=== PATIENT | female | born 1970 | race Caucasian/White ===

== ENCOUNTER 2016-08-25 14:01 | Observation (INO) | payer MEDICAID ==
[~2016-08-25] VITALS: Ht 170.2 cm; Wt 101.2 kg
[~2016-08-25 14:01] MED LIST: ALBU18; CIPR-217 PO; DICL1GEL26; HYDR-2598; NOR10T PO
[2016-08-25 15:10] LABS: Basophils # (auto) 0 uL; Basophils % (auto) 0.3 % (0.0-2.0); Eosinophils # (auto) 0.3 uL; Eosinophils % (auto) 2.2 % (0.0-7.0); Hematocrit 52.5 % (36.0-46.0); Hemoglobin 16.8 g/dL (12.2-16.2); Lymphocytes # (auto) 3.1 uL; Lymphocytes % (auto) 26.1 % (10.0-50.0); Mean Corpuscular Hemoglobin 30.1 pg (28.0-32.0); Mean Corpuscular Volume 94.3 fL (80.0-100.0); Mean Platelet Volume 8.8 fL (7.4-10.4); Monocytes # (auto) 1.1 uL; Monocytes % (auto) 9.6 % (0.0-12.0); Neutrophils # (auto) 7.3 uL; Neutrophils % (auto) 61.8 % (37.0-80.0); Platelet Count (auto) 282 10^3/uL (140-450); Red Cell Distribution Width 15.1 % (11.6-16.0); White Blood Cell 11.8 10^3/uL (4.4-10.8)
[2016-08-25 15:14] LABS: Albumin 3.6 g/dL (3.4-5.0); Aspartate Aminotransferase 137 U/L (15-37); BUN/Creatinine Ratio 16.7; Blood Urea Nitrogen 14 mg/dL (7-18); Calcium 9.2 mg/dL (8.5-10.1); Carbon Dioxide 25 mmol/L (21-32); GFR African American 94 mL/min; GFR Non-African American 78 mL/min; Glucose 98 mg/dL (74-106)
[2016-08-25 15:26] LABS: Anion Gap 9 (5-15); Chloride 110 mmol/L (98-107); Potassium 4.2 mmol/L (3.5-5.1); Sodium 144 mmol/L (136-145)
[2016-08-25 15:31] LABS: Alkaline Phosphatase 165 U/L (45-117); Bilirubin, Total 0.4 mg/dL (0.2-1.0); Total Protein 7.6 g/dL (6.4-8.2)
[2016-08-25 15:34] LABS: Acetaminophen < 2.0 ug/mL (10-30); Salicylate 3.4 mg/dL (2.8-20.0)
[2016-08-25 18:24] LABS: Urine Bilirubin Negative (Negative); Urine Blood Negative /uL (Negative); Urine Color Yellow (Yellow); Urine Glucose Normal (Normal); Urine Ketone Negative (Negative); Urine Mucus FEW (None Seen); Urine Nitrite Negative (Negative); Urine RBC <1 /hpf (0 - 4); Urine Squamous Epithelial Cell MOD /hpf (<5); Urine Urobilinogen Normal (Negative); Urine pH 5.5 (5.0-8.0)
[2016-08-25 18:27] VITALS: BP 143/87
== END 2016-08-25 18:05 | disposition left against medical advice (07) | DRG 756 ==
LOC: ER 14:03 → OVERFLOW 15:48 → ER 18:35
PROVIDERS: ADMIT Family Medicine; ATTEND Family Medicine
DX: R44.3 Hallucinations, unspecified (principal); F32.9 Major depressive disorder, single episode, unspecified; F23 Brief psychotic disorder; F20.9 Schizophrenia, unspecified; F41.9 Anxiety disorder, unspecified; F17.210 Nicotine dependence, cigarettes, uncomplicated; Z82.49 Family history of ischemic heart disease and other diseases of the circulatory system
CPT/HCPCS: 36415; 71010; 80053; 80320; 80329; 81001; 82962; 83735; 85025; 93005; 99285; G0378; G0434

== ENCOUNTER 2018-02-04 12:02 | Emergency (ER) | payer MEDICAID ==
[~2018-02-04] VITALS: Ht 170.2 cm; Wt 99.8 kg
[2018-02-04 13:00] VITALS: BP 112/76
== END 2018-02-04 14:40 | disposition home or self-care (01) ==
LOC: EDBD 12:02 → ER 12:02
DX: R51 Headache (principal); M54.2 Cervicalgia; G89.29 Other chronic pain; F17.210 Nicotine dependence, cigarettes, uncomplicated; Z90.49 Acquired absence of other specified parts of digestive tract; Z90.710 Acquired absence of both cervix and uterus
CPT/HCPCS: 70450; 72125

== ENCOUNTER 2018-08-05 19:03 | Emergency (ER) | payer MEDICAID ==
[~2018-08-05] VITALS: Ht 170.2 cm; Wt 104.3 kg
[2018-08-05 19:23] VITALS: BP 127/92
[2018-08-05] MEDS ORDERED: KETOROLAC TROMETH 60MG/2ML VIAL IM ONE (21:30)
== END 2018-08-05 22:03 | disposition home or self-care (01) ==
LOC: ER 19:03
DX: G89.29 Other chronic pain (principal); M54.5 Low back pain; F17.210 Nicotine dependence, cigarettes, uncomplicated; Z90.710 Acquired absence of both cervix and uterus; Z90.49 Acquired absence of other specified parts of digestive tract; Z88.8 Allergy status to other drugs, medicaments and biological substances
CPT/HCPCS: 96372; 99283; J1885

== ENCOUNTER 2019-11-24 15:51 | Emergency (ER) | payer MEDICAID ==
[~2019-11-24] VITALS: Ht 170.2 cm; Wt 106.6 kg
[~2019-11-24 15:51] MED LIST changes: -CIPR-217 PO; +CIPR500T4 PO
[2019-11-24 17:34] VITALS: BP 120/81
[2019-11-24] MEDS ORDERED: ONDANSETRON ODT 4 MG TAB PO ONE ×2 (17:45)
== END 2019-11-24 18:01 | disposition home or self-care (01) ==
LOC: ER 15:51
DX: F20.9 Schizophrenia, unspecified (principal); R11.0 Nausea; Z76.0 Encounter for issue of repeat prescription
CPT/HCPCS: 99283; Q0162

== ENCOUNTER 2022-12-24 04:15 | Emergency (ER) | payer MEDICAID ==
[~2022-12-24] VITALS: Ht 172.7 cm; Wt 70.0 kg
[2022-12-24 08:32] LABS: Basophils # (auto) 0.1 10 ^3/uL (0-0.2); Basophils % (auto) 0.6 % (0.0-2.0); Eosinophils # (auto) 0.6 10 ^3/uL (0-0.8); Eosinophils % (auto) 4.9 % (0.0-7.0); Hematocrit 46.3 % (36.0-46.0); Hemoglobin 15.3 g/dL (12.2-16.2); Lymphocytes # (auto) 3.4 10 ^3/uL (0.4-5.4); Lymphocytes % (auto) 28.9 % (10.0-50.0); Mean Corpuscular Hemoglobin 32.3 pg (28.0-32.0); Mean Corpuscular Hgb Conc. 33.1 g/dL (32.0-36.0); Mean Corpuscular Volume 97.7 fL (80.0-100.0); Monocytes % (auto) 8.5 % (0.0-12.0); Neutrophils # (auto) 6.8 10 ^3/uL (1.6-8.6); Neutrophils % (auto) 57.1 % (37.0-80.0); Nucleated Red Blood Cells % 0.1 %; Red Blood Cells 4.74 10^6/uL (4.0-5.20); Red Cell Distribution Width 14.7 % (11.8-14.3); White Blood Cell 11.8 10^3/uL (4.4-10.8)
[2022-12-24 08:48] VITALS: BP 128/61; RESP 16; TEMP 97.9; O2SAT 94
[2022-12-24 08:50] LABS: Albumin 3.5 g/dL (3.4-5.0); Calcium 8.3 mg/dL (8.5-10.1); Magnesium 2.5 mg/dL (1.6-2.6); Potassium 4.3 mmol/L (3.5-5.1)
[2022-12-24 08:54] LABS: BUN/Creatinine Ratio 21.6 (10.0-20.0); Bilirubin, Total 0.2 mg/dL (0.2-1.0); Total Protein 6.9 g/dL (6.4-8.2)
[2022-12-24] MEDS ORDERED: METOCLOPRAMIDE HCL 10 MG TAB PO ONE (09:00)
[2022-12-24] MEDS ORDERED: MAALOX PLUS or MAALOX 30 ML PO ONE (09:00)
[2022-12-24] MEDS ORDERED: DONNATAL 5ml ORAL Elix (BELLADONNA ALK-PHENOBARB) PO ONE (09:00)
[2022-12-24 09:48] VITALS: PULSE 93
[2022-12-24 09:50] LABS: Magnesium 2.4 mg/dL (1.6-2.6)
[2022-12-24 09:53] LABS: Urine Bacteria FEW /hpf (None Seen); Urine Blood Negative /uL (Negative); Urine Specific Gravity 1.016 (1.001-1.035); Urine WBC 3 /hpf (0 - 5)
[2022-12-24 10:06] LABS: Alcohol, Urine < 3.0 mg/dL (0-10); Amphetamine Screen, Urine NEGATIVE (NEGATIVE); Barbiturate Scree,Urine NEGATIVE (NEGATIVE); Benzodiazephine Screen, Urine NEGATIVE (NEGATIVE); Cannabinoid Screen, Urine POSITIVE (NEGATIVE); Cocaine Screen, Urine NEGATIVE (NEGATIVE)
[2022-12-24 10:14] LABS: Opiate Scree,Urine POSITIVE (NEGATIVE); Phencyclidine Screen, Urine NEGATIVE (NEGATIVE)
[2022-12-24] MEDS ORDERED: LEVOTHYROXINE SODIUM 112 MCG TAB PO ONE (11:30)
[2022-12-24] MEDS ORDERED: ALUMCHW6 PO (11:35)
== END 2022-12-24 11:49 | disposition home or self-care (01) ==
LOC: EDBD 04:15 → ER 04:15
DX: R10.13 Epigastric pain (principal); G89.4 Chronic pain syndrome; E03.9 Hypothyroidism, unspecified; F12.10 Cannabis abuse, uncomplicated; F25.9 Schizoaffective disorder, unspecified; R74.8 Abnormal levels of other serum enzymes; R07.89 Other chest pain; E11.22 Type 2 diabetes mellitus with diabetic chronic kidney disease; I12.9 Hypertensive chronic kidney disease with stage 1 through stage 4 chronic kidney disease, or unspecified chronic kidney disease; N18.9 Chronic kidney disease, unspecified; F17.210 Nicotine dependence, cigarettes, uncomplicated; Z90.49 Acquired absence of other specified parts of digestive tract; Z90.710 Acquired absence of both cervix and uterus; Z79.2 Long term (current) use of antibiotics; Z79.899 Other long term (current) drug therapy; Z91.048 Other nonmedicinal substance allergy status
CPT/HCPCS: 36415; 71046; 80053; 80307; 81001; 83690; 83735; 84443; 84484; 85025; 93005; 99285; J8597

== ENCOUNTER 2023-01-25 03:32 | Emergency (ER) | payer MEDICAID ==
[~2023-01-25] VITALS: Ht 165.1 cm; Wt 92.7 kg
[~2023-01-25 03:32] MED LIST changes: +ALUMCHW6 PO
[2023-01-25 05:51] VITALS: BP 140/82; PULSE 72; RESP 16; TEMP 97.4; O2SAT 96
[2023-01-26] MEDS ORDERED: QUET300T14 PO (13:50)
== END 2023-01-25 05:54 | disposition home or self-care (01) ==
LOC: ER 03:32 → EDBD 03:32 → ER 05:48
DX: G44.229 Chronic tension-type headache, not intractable (principal); F17.210 Nicotine dependence, cigarettes, uncomplicated; E11.9 Type 2 diabetes mellitus without complications; Z90.49 Acquired absence of other specified parts of digestive tract; Z90.710 Acquired absence of both cervix and uterus; Z87.440 Personal history of urinary (tract) infections

== ENCOUNTER 2023-01-25 05:51 | Inpatient (IN) | payer MEDICAID ==
[~2023-01-25] VITALS: Ht 167.6 cm; Wt 92.0 kg
[2023-01-25 06:37] LABS: INR 1.01 (0.9-1.15); Partial Thromboplastin Time 29.1 SEC (24.5-34.5); Prothrombin Time 10.6 sec (9.3-11.8)
[2023-01-25] MEDS ORDERED: ONDANSETRON ODT 4 MG TAB PO ONE (07:00)
[2023-01-25] MEDS ORDERED: HYDROcodone-ACET 5/325MG TAB PO ONE (07:00)
[2023-01-25 07:14] LABS: Basophils # (auto) 0.1 10 ^3/uL (0-0.2); Basophils % (auto) 0.6 % (0.0-2.0); Eosinophils # (auto) 0.2 10 ^3/uL (0-0.8); Eosinophils % (auto) 1.2 % (0.0-7.0); Hematocrit 47.3 % (36.0-46.0); Hemoglobin 15.6 g/dL (12.2-16.2); Lymphocytes # (auto) 2.9 10 ^3/uL (0.4-5.4); Lymphocytes % (auto) 17.6 % (10.0-50.0); Mean Corpuscular Hemoglobin 31.9 pg (28.0-32.0); Mean Corpuscular Volume 96.8 fL (80.0-100.0); Monocytes # (auto) 1.7 10 ^3/uL (0-1.3); Monocytes % (auto) 10.4 % (0.0-12.0); Neutrophils # (auto) 11.6 10 ^3/uL (1.6-8.6); Neutrophils % (auto) 70.2 % (37.0-80.0); Red Blood Cells 4.89 10^6/uL (4.0-5.20); Red Cell Distribution Width 15.1 % (11.8-14.3); White Blood Cell 16.6 10^3/uL (4.4-10.8)
[2023-01-25 07:26] LABS: Alanine Aminotransferase 167 U/L (7-40); Alkaline Phosphatase 171 U/L (46-116); Anion Gap 13.2 (5-15); Aspartate Aminotransferase 138 U/L (13-40); BUN/Creatinine Ratio 17.6 (10.0-20.0); Blood Urea Nitrogen 16 mg/dL (9-23); Calcium 9.6 mg/dL (8.5-10.1); Carbon Dioxide 21.8 mmol/L (20-30); Chloride 108 mmol/L (98-107); Glucose 114 mg/dL (74-106); Magnesium 2.2 mg/dL (1.6-2.6); Sodium 143 mmol/L (136-145)
[2023-01-25 07:27] LABS: Bilirubin, Total 0.6 mg/dL (0.2-1.0); Total Protein 7.7 g/dL (5.7-8.2)
[2023-01-25 07:47] LABS: Urine Bacteria FEW /hpf (None Seen); Urine Blood Negative /uL (Negative); Urine Clarity Clear (Clear); Urine Color Yellow (Yellow); Urine Protein, UAD TRACE (Negative); Urine Specific Gravity 1.028 (1.001-1.035); Urine WBC <1 /hpf (0 - 5)
[2023-01-25] MEDS ORDERED: PIPERACILLIN-TAZO 4.5GM 100 ML IV ONE (11:30)
[2023-01-25 12:23] LABS: Free T3 2.71 pg/mL (2.3-4.2)
[2023-01-25 12:24] LABS: Free T4 (Free Thyroxine) 1.29 ng/dL (0.89-1.76)
[2023-01-25] MEDS ORDERED: ONDANSETRON HCL 4 MG/2 ML VIAL IV PRN (13:30)
[2023-01-25] MEDS ORDERED: MORPHINE SULFATE 4 MG/ML SYR/VIAL IV PRN (13:30)
[2023-01-25] MEDS ORDERED: NITROGLYCERIN 0.4 MG SL TAB SL PRN (13:30)
[2023-01-25 15:13] LABS: Prothrombin Time 10.5 sec (9.3-11.8)
[2023-01-25] MEDS: PIPERACILLIN-TAZOB 3.375GM 100 ML IV SCH (18:49)
[2023-01-25] MEDS ORDERED: ATORVASTATIN 20 MG TAB PO SCH (22:00)
[2023-01-26] MEDS: METOPROLOL TARTRATE 25 MG TAB PO SCH ×2 (00:06→10:34)
[2023-01-26] MEDS: PIPERACILLIN-TAZOB 3.375GM 100 ML IV SCH ×2 (02:16→09:32)
[2023-01-26] MEDS ORDERED: cloNIDine HCL 0.1 MG TAB PO PRN (03:45)
[2023-01-26 06:53] LABS: Basophils # (auto) 0.1 10 ^3/uL (0-0.2); Basophils % (auto) 0.8 % (0.0-2.0); Eosinophils # (auto) 0.4 10 ^3/uL (0-0.8); Eosinophils % (auto) 4.2 % (0.0-7.0); Hematocrit 44.1 % (36.0-46.0); Hemoglobin 14.5 g/dL (12.2-16.2); Lymphocytes # (auto) 2.4 10 ^3/uL (0.4-5.4); Lymphocytes % (auto) 23.7 % (10.0-50.0); Mean Corpuscular Hemoglobin 32.2 pg (28.0-32.0); Mean Corpuscular Hgb Conc. 32.8 g/dL (32.0-36.0); Mean Corpuscular Volume 98.1 fL (80.0-100.0); Monocytes # (auto) 1.3 10 ^3/uL (0-1.3); Monocytes % (auto) 13.3 % (0.0-12.0); Neutrophils # (auto) 5.8 10 ^3/uL (1.6-8.6); Nucleated Red Blood Cells % 0.1 %; Red Blood Cells 4.49 10^6/uL (4.0-5.20); Red Cell Distribution Width 15.1 % (11.8-14.3); White Blood Cell 9.9 10^3/uL (4.4-10.8)
[2023-01-26 07:01] LABS: Alanine Aminotransferase 178 U/L (7-40); Albumin 4.2 g/dL (3.2-4.8); Alkaline Phosphatase 185 U/L (46-116); Anion Gap 3.9 (5-15); Aspartate Aminotransferase 103 U/L (13-40); Blood Urea Nitrogen 11 mg/dL (9-23); Calcium 9.1 mg/dL (8.7-10.4); Carbon Dioxide 27.1 mmol/L (20-30); Chloride 108 mmol/L (98-107); Glucose 116 mg/dL (74-106); Potassium 4.1 mmol/L (3.5-5.1); Sodium 139 mmol/L (136-145)
[2023-01-26 07:02] LABS: Bilirubin, Total 0.6 mg/dL (0.2-1.0); Total Protein 6.5 g/dL (5.7-8.2)
[2023-01-26] MEDS ORDERED: HYDROcodone-ACET 5/325MG TAB PO ONE (07:15)
[2023-01-26] MEDS ORDERED: DOCUSATE SOD 100 MG CAP PO SCH (10:00)
[2023-01-26] MEDS ORDERED: ASPirin 81 mg TAB PO SCH (10:00)
[2023-01-26 10:35] VITALS: TEMP 98.4
[2023-01-26 11:40] VITALS: BP 156/89; PULSE 75; RESP 20; O2SAT 96
[2023-01-26] MEDS ORDERED: QUET300T14 PO (13:50)
[2023-01-26] MEDS ORDERED: PIPERACILLIN-TAZOB 3.375GM 100 ML IV SCH (22:00)
== END 2023-01-26 12:44 | disposition left against medical advice (07) | DRG 203 ==
LOC: ER 05:51 → TELE 13:34
PROVIDERS: ADMIT Nurse Practitioner Family; ATTEND Family Medicine
DX: R07.89 Other chest pain (principal); F22 Delusional disorders; R16.0 Hepatomegaly, not elsewhere classified; D72.829 Elevated white blood cell count, unspecified; E11.65 Type 2 diabetes mellitus with hyperglycemia; E03.9 Hypothyroidism, unspecified; E78.5 Hyperlipidemia, unspecified; F17.210 Nicotine dependence, cigarettes, uncomplicated; F20.9 Schizophrenia, unspecified; F41.9 Anxiety disorder, unspecified; F32.A Depression, unspecified; Z53.29 Procedure and treatment not carried out because of patient's decision for other reasons; I10 Essential (primary) hypertension; Z82.49 Family history of ischemic heart disease and other diseases of the circulatory system; Z83.3 Family history of diabetes mellitus; Z90.710 Acquired absence of both cervix and uterus; Z88.8 Allergy status to other drugs, medicaments and biological substances; Z90.49 Acquired absence of other specified parts of digestive tract
CPT/HCPCS: 36415; 70450; 71045; 74177; 76705; 80053; 81001; 82962; 83690; 83735; 83880; 84439; 84443; 84481; 84484; 85025; 85610; 85730; 87040; 93005; 93306; 96365; 96375; G0378; J2405; J2543; Q0162

== ENCOUNTER 2023-01-26 13:08 | Emergency (ER) | payer MEDICAID ==
[~2023-01-26] VITALS: Ht 170.2 cm; Wt 91.7 kg
[2023-01-26 13:45] VITALS: BP 162/80; PULSE 77; RESP 16; TEMP 98.3; O2SAT 94
[2023-01-26] MEDS ORDERED: QUET300T14 PO (13:50)
== END 2023-01-26 13:55 | disposition home or self-care (01) ==
LOC: ER 13:08
DX: F20.9 Schizophrenia, unspecified (principal); I10 Essential (primary) hypertension; E78.5 Hyperlipidemia, unspecified; E11.9 Type 2 diabetes mellitus without complications; E03.9 Hypothyroidism, unspecified; F17.210 Nicotine dependence, cigarettes, uncomplicated; Z76.0 Encounter for issue of repeat prescription; Z90.49 Acquired absence of other specified parts of digestive tract; Z90.710 Acquired absence of both cervix and uterus; Z79.2 Long term (current) use of antibiotics; Z79.899 Other long term (current) drug therapy; Z91.048 Other nonmedicinal substance allergy status
CPT/HCPCS: 93005

== ENCOUNTER 2023-02-07 15:31 | Emergency (ER) | payer MEDICAID ==
[~2023-02-07] VITALS: Ht 167.6 cm; Wt 94.8 kg
[~2023-02-07 15:31] MED LIST changes: +QUET300T14 PO
[2023-02-07] MEDS ORDERED: KETOROLAC TROMETH 30 MG/ML 1ML VIAL IM ONE (17:15)
[2023-02-07 17:40] LABS: Basophils # (auto) 0.1 10 ^3/uL (0-0.2); Basophils % (auto) 0.7 % (0.0-2.0); Eosinophils # (auto) 0.3 10 ^3/uL (0-0.8); Eosinophils % (auto) 2.3 % (0.0-7.0); Hematocrit 48.7 % (36.0-46.0); Hemoglobin 16.7 g/dL (12.2-16.2); Lymphocytes # (auto) 2.9 10 ^3/uL (0.4-5.4); Lymphocytes % (auto) 26.7 % (10.0-50.0); Mean Corpuscular Hemoglobin 32.9 pg (28.0-32.0); Mean Corpuscular Hgb Conc. 34.2 g/dL (32.0-36.0); Mean Corpuscular Volume 96.3 fL (80.0-100.0); Monocytes % (auto) 9.4 % (0.0-12.0); Neutrophils # (auto) 6.7 10 ^3/uL (1.6-8.6); Neutrophils % (auto) 60.9 % (37.0-80.0); Red Blood Cells 5.06 10^6/uL (4.0-5.20); White Blood Cell 11.1 10^3/uL (4.4-10.8)
[2023-02-07 17:53] LABS: Urine Bacteria NONE SEEN /hpf (None Seen); Urine Blood Negative /uL (Negative); Urine Clarity Clear (Clear); Urine Color Yellow (Yellow); Urine Protein, UAD Negative (Negative); Urine Specific Gravity 1.015 (1.001-1.035); Urine Urobilinogen Normal (Negative); Urine WBC <1 /hpf (0 - 5)
[2023-02-07 18:01] LABS: Alanine Aminotransferase 63 U/L (7-40); Albumin 4.6 g/dL (3.2-4.8); Alkaline Phosphatase 150 U/L (46-116); Anion Gap 5.4 (5-15); Aspartate Aminotransferase 37 U/L (13-40); BUN/Creatinine Ratio 12.4 (10.0-20.0); Bilirubin, Total 0.3 mg/dL (0.2-1.0); Blood Urea Nitrogen 12 mg/dL (9-23); Calcium 9.7 mg/dL (8.7-10.4); Carbon Dioxide 27.6 mmol/L (20-30); Chloride 107 mmol/L (98-107); Glucose 139 mg/dL (74-106); Potassium 4.6 mmol/L (3.5-5.1); Sodium 140 mmol/L (136-145); Total Protein 7.4 g/dL (5.7-8.2)
[2023-02-07 18:08] LABS: Amphetamine Screen, Urine Neg (NEGATIVE)
[2023-02-07 18:09] LABS: Barbiturate Scree,Urine Neg (NEGATIVE); Benzodiazephine Screen, Urine Neg (NEGATIVE); Cannabinoid Screen, Urine Neg (NEGATIVE); Cocaine Screen, Urine Neg (NEGATIVE); Opiate Scree,Urine Pos (NEGATIVE); Phencyclidine Screen, Urine Neg (NEGATIVE)
[2023-02-07 19:58] VITALS: BP 131/74; PULSE 82; RESP 18; TEMP 97.6; O2SAT 95
== END 2023-02-07 20:02 | disposition home or self-care (01) ==
LOC: ER 15:31
DX: F41.9 Anxiety disorder, unspecified (principal); G89.4 Chronic pain syndrome; M54.6 Pain in thoracic spine; F32.9 Major depressive disorder, single episode, unspecified; E11.9 Type 2 diabetes mellitus without complications; E78.5 Hyperlipidemia, unspecified; I10 Essential (primary) hypertension; F17.210 Nicotine dependence, cigarettes, uncomplicated; Z90.49 Acquired absence of other specified parts of digestive tract; Z90.710 Acquired absence of both cervix and uterus; Z87.440 Personal history of urinary (tract) infections
CPT/HCPCS: 36415; 70450; 74176; 80053; 80307; 81001; 83605; 85025; 96372; 99285; J1885

== ENCOUNTER 2023-02-16 17:36 | Emergency (ER) | payer MEDICAID ==
[~2023-02-16] VITALS: Ht 167.6 cm; Wt 95.4 kg
[2023-02-16 18:54] VITALS: BP 155/80; PULSE 18; RESP 18; TEMP 98; O2SAT 99
[2023-02-16] MEDS ORDERED: KETOROLAC TROMETH 60MG/2ML VIAL IM ONE (19:15)
[2023-02-16] MEDS ORDERED: IBUP-1455 PO (23:59)
[2023-02-16] MEDS ORDERED: TRAM50TA2 PO (23:59)
== END 2023-02-16 20:18 | disposition home or self-care (01) ==
LOC: EDBD 17:36 → EDUNIT# 17:36 → ER 17:36
DX: G89.29 Other chronic pain (principal); M54.50 Low back pain, unspecified; F41.9 Anxiety disorder, unspecified; I50.9 Heart failure, unspecified; J44.9 Chronic obstructive pulmonary disease, unspecified; F32.9 Major depressive disorder, single episode, unspecified; F20.9 Schizophrenia, unspecified; F15.90 Other stimulant use, unspecified, uncomplicated; Z90.710 Acquired absence of both cervix and uterus; Z88.8 Allergy status to other drugs, medicaments and biological substances; Z79.1 Long term (current) use of non-steroidal anti-inflammatories (NSAID); Z79.899 Other long term (current) drug therapy
CPT/HCPCS: 96372; 99283; J1885

== ENCOUNTER 2023-02-16 19:52 | Emergency (ER) | payer MEDICAID ==
[~2023-02-16] VITALS: Ht 167.6 cm; Wt 93.0 kg
[2023-02-16 20:30] VITALS: TEMP 99.1; O2SAT 96
[2023-02-16] MEDS ORDERED: HYDROcodone-ACET 5/325MG TAB PO ONE (22:00)
[2023-02-16] MEDS ORDERED: KETOROLAC TROMETH 60MG/2ML VIAL IM ONE (22:00)
[2023-02-16] MEDS ORDERED: TRAM50TA2 PO (23:59)
[2023-02-16] MEDS ORDERED: IBUP-1455 PO (23:59)
[2023-02-17 00:30] VITALS: BP 172/78; PULSE 73; RESP 18
[2023-02-17] MEDS ORDERED: HYDROmorphone HCL 2 MG/ML VL/or syr IM ONE (00:30)
== END 2023-02-17 00:46 | disposition home or self-care (01) ==
LOC: ER 19:52
DX: G89.29 Other chronic pain (principal); M54.59 Other low back pain; F41.9 Anxiety disorder, unspecified; F32.9 Major depressive disorder, single episode, unspecified; E11.9 Type 2 diabetes mellitus without complications; E78.5 Hyperlipidemia, unspecified; I10 Essential (primary) hypertension; F20.9 Schizophrenia, unspecified; F17.210 Nicotine dependence, cigarettes, uncomplicated; Z79.899 Other long term (current) drug therapy; Z90.49 Acquired absence of other specified parts of digestive tract; Z90.710 Acquired absence of both cervix and uterus; Z88.8 Allergy status to other drugs, medicaments and biological substances
CPT/HCPCS: 96372; 99284; J1170; J1885

== ENCOUNTER 2023-02-17 07:07 | Emergency (ER) | payer MEDICAID ==
[~2023-02-17] VITALS: Ht 170.2 cm; Wt 100.0 kg
[2023-02-17 11:48] LABS: Alanine Aminotransferase 145 U/L (7-40); Albumin 4.6 g/dL (3.2-4.8); Alkaline Phosphatase 140 U/L (46-116); Aspartate Aminotransferase 107 U/L (13-40); BUN/Creatinine Ratio 21.5 (10.0-20.0); Blood Urea Nitrogen 23 mg/dL (9-23); Carbon Dioxide 30 mmol/L (20-30); Glucose 139 mg/dL (74-106)
[2023-02-17 11:49] LABS: Bilirubin, Total 0.6 mg/dL (0.2-1.0)
[2023-02-17 12:12] LABS: Basophils # (auto) 0.1 10 ^3/uL (0-0.2); Basophils % (auto) 0.7 % (0.0-2.0); Eosinophils # (auto) 0.1 10 ^3/uL (0-0.8); Eosinophils % (auto) 0.6 % (0.0-7.0); Hematocrit 44.7 % (36.0-46.0); Lymphocytes # (auto) 1.9 10 ^3/uL (0.4-5.4); Mean Corpuscular Hemoglobin 31.9 pg (28.0-32.0); Mean Corpuscular Hgb Conc. 33.6 g/dL (32.0-36.0); Mean Corpuscular Volume 94.8 fL (80.0-100.0); Monocytes # (auto) 1.3 10 ^3/uL (0-1.3); Monocytes % (auto) 9.2 % (0.0-12.0); Neutrophils # (auto) 11.2 10 ^3/uL (1.6-8.6); Neutrophils % (auto) 76.5 % (37.0-80.0); Nucleated Red Blood Cells % 0.1 %; Red Blood Cells 4.71 10^6/uL (4.0-5.20); White Blood Cell 14.6 10^3/uL (4.4-10.8)
[2023-02-17 12:23] LABS: Anion Gap 10 (5-15); Chloride 102 mmol/L (98-107); Potassium 3.8 mmol/L (3.5-5.1); Sodium 142 mmol/L (136-145)
[2023-02-17 12:30] LABS: Lipase 105 U/L (12-53)
[2023-02-17 14:17] LABS: Amphetamine Screen, Urine Neg (NEGATIVE)
[2023-02-17 14:18] LABS: Barbiturate Scree,Urine Neg (NEGATIVE); Benzodiazephine Screen, Urine Neg (NEGATIVE); Cannabinoid Screen, Urine Pos (NEGATIVE); Cocaine Screen, Urine Neg (NEGATIVE); Opiate Scree,Urine Pos (NEGATIVE); Phencyclidine Screen, Urine Neg (NEGATIVE)
[2023-02-17] MEDS ORDERED: ONDANSETRON ODT 4 MG TAB PO ONE (15:45)
[2023-02-17] MEDS ORDERED: HYDROcodone-ACET 5/325MG TAB PO ONE (15:45)
[2023-02-17 21:03] LABS: Urine Bacteria NONE SEEN /hpf (None Seen); Urine Blood Negative /uL (Negative); Urine Clarity Clear (Clear); Urine Color Yellow (Yellow); Urine Protein, UAD TRACE (Negative); Urine Specific Gravity 1.025 (1.001-1.035); Urine WBC 2 /hpf (0 - 5); Urine pH 7.5 (5.0-8.0)
[2023-02-17 22:58] VITALS: BP 140/71; PULSE 86; RESP 18; TEMP 98; O2SAT 93
== END 2023-02-17 22:38 | disposition home or self-care (01) ==
LOC: ER 07:07
DX: D72.829 Elevated white blood cell count, unspecified (principal); R10.2 Pelvic and perineal pain; R10.9 Unspecified abdominal pain; R74.01 Elevation of levels of liver transaminase levels; R07.9 Chest pain, unspecified; M54.50 Low back pain, unspecified; E11.9 Type 2 diabetes mellitus without complications; E78.5 Hyperlipidemia, unspecified; I10 Essential (primary) hypertension; F17.210 Nicotine dependence, cigarettes, uncomplicated; Z90.49 Acquired absence of other specified parts of digestive tract; Z90.710 Acquired absence of both cervix and uterus; Z88.8 Allergy status to other drugs, medicaments and biological substances
CPT/HCPCS: 36415; 71046; 74176; 80053; 80307; 81001; 83690; 84484; 84702; 85025; 99284; Q0162

== ENCOUNTER → 2023-02-17 | Emergency (ER) | payer MEDICAID ==
[~2023-02-17] MED LIST changes: +IBUP-1455 PO; +TRAM50TA2 PO
== END | disposition left against medical advice (07) ==
LOC: ER 03:05
DX: G89.29 Other chronic pain (principal); Z53.21 Procedure and treatment not carried out due to patient leaving prior to being seen by health care provider

== ENCOUNTER 2023-03-15 18:35 | Emergency (ER) | payer MEDICAID ==
[~2023-03-15] VITALS: Ht 170.2 cm; Wt 99.0 kg
[2023-03-15 18:58] VITALS: BP 137/65; PULSE 102; RESP 20; O2SAT 95
[2023-03-15 19:30] LABS: Basophils # (auto) 0.1 10 ^3/uL (0-0.2); Basophils % (auto) 0.5 % (0.0-2.0); Eosinophils # (auto) 0.4 10 ^3/uL (0-0.8); Eosinophils % (auto) 2.4 % (0.0-7.0); Hematocrit 42.1 % (36.0-46.0); Hemoglobin 13.7 g/dL (12.2-16.2); Lymphocytes # (auto) 3.7 10 ^3/uL (0.4-5.4); Mean Corpuscular Hemoglobin 31.6 pg (28.0-32.0); Mean Corpuscular Hgb Conc. 32.5 g/dL (32.0-36.0); Monocytes % (auto) 12.4 % (0.0-12.0); Neutrophils % (auto) 61.7 % (37.0-80.0); Nucleated Red Blood Cells % 0.1 %; Red Blood Cells 4.34 10^6/uL (4.0-5.20); Red Cell Distribution Width 14.1 % (11.8-14.3); White Blood Cell 16.2 10^3/uL (4.4-10.8)
[2023-03-15 19:53] LABS: Alanine Aminotransferase 70 U/L (7-40); Albumin 4.2 g/dL (3.2-4.8); Alkaline Phosphatase 141 U/L (46-116); Anion Gap 7 (5-15); Aspartate Aminotransferase 21 U/L (13-40); BUN/Creatinine Ratio 13.3 (10.0-20.0); Bilirubin, Total 0.2 mg/dL (0.2-1.0); Blood Urea Nitrogen 12 mg/dL (9-23); Calcium 9.3 mg/dL (8.5-10.1); Carbon Dioxide 27 mmol/L (20-30); Chloride 108 mmol/L (98-107); Glucose 114 mg/dL (74-106); Potassium 4.8 mmol/L (3.5-5.1); Sodium 142 mmol/L (136-145); Total Protein 6.4 g/dL (5.7-8.2)
[2023-03-15 20:08] LABS: Lipase 62 U/L (12-53)
[2023-03-15 21:08] LABS: Urine Bacteria NONE SEEN /hpf (None Seen); Urine Blood Negative /uL (Negative); Urine Clarity Clear (Clear); Urine Color Colorless (Yellow); Urine Protein, UAD Negative (Negative); Urine Specific Gravity 1.008 (1.001-1.035); Urine Urobilinogen Normal (Negative); Urine WBC <1 /hpf (0 - 5)
== END 2023-03-15 23:27 | disposition left against medical advice (07) ==
LOC: EDBD 18:35 → ER 18:35
DX: D72.829 Elevated white blood cell count, unspecified (principal); R74.8 Abnormal levels of other serum enzymes; M25.571 Pain in right ankle and joints of right foot; M79.10 Myalgia, unspecified site; I10 Essential (primary) hypertension; E11.9 Type 2 diabetes mellitus without complications; E78.5 Hyperlipidemia, unspecified; F41.9 Anxiety disorder, unspecified; F32.9 Major depressive disorder, single episode, unspecified; F20.9 Schizophrenia, unspecified; F17.210 Nicotine dependence, cigarettes, uncomplicated; Z98.890 Other specified postprocedural states; Z88.8 Allergy status to other drugs, medicaments and biological substances; Z91.09 Other allergy status, other than to drugs and biological substances; Z79.899 Other long term (current) drug therapy
CPT/HCPCS: 36415; 80053; 81001; 83690; 85025

== ENCOUNTER 2023-06-11 11:06 | Emergency (ER) | payer MEDICAID ==
[~2023-06-11] VITALS: Ht 170.2 cm; Wt 113.6 kg
[~2023-06-11 11:06] MED LIST changes: +IBU600T PO
[2023-06-11] MEDS ORDERED: LORazepam 0.5 MG TAB PO ONE (12:00)
[2023-06-11] MEDS ORDERED: QUEtiapine FUMARATE 100 MG TAB PO ONE (12:00)
[2023-06-11 12:17] VITALS: TEMP 98.6
[2023-06-11 12:20] LABS: Basophils # (auto) 0.1 10 ^3/uL (0-0.2); Basophils % (auto) 0.5 % (0.0-2.0); Eosinophils # (auto) 0.2 10 ^3/uL (0-0.8); Nucleated Red Blood Cells % 0.1 %
[2023-06-11 12:21] LABS: Eosinophils % (auto) 1.2 % (0.0-7.0); Hematocrit 53.7 % (36.0-46.0); Hemoglobin 17.6 g/dL (12.2-16.2); Lymphocytes # (auto) 5.5 10 ^3/uL (0.4-5.4); Lymphocytes % (auto) 39.4 % (10.0-50.0); Mean Corpuscular Hgb Conc. 32.8 g/dL (32.0-36.0); Mean Corpuscular Volume 91.7 fL (80.0-100.0); Monocytes # (auto) 1.2 10 ^3/uL (0-1.3); Monocytes % (auto) 8.9 % (0.0-12.0); Red Blood Cells 5.85 10^6/uL (4.0-5.20); Red Cell Distribution Width 15.6 % (11.8-14.3)
[2023-06-11 12:40] LABS: Acetaminophen < 2.0 UG/ML (10.0-20.0); Alanine Aminotransferase 68 U/L (7-40); Albumin 4.6 g/dL (3.2-4.8); Alkaline Phosphatase 179 U/L (46-116); Anion Gap 9 (5-15); Aspartate Aminotransferase 36 U/L (13-40); BUN/Creatinine Ratio 10.2 (10.0-20.0); Bilirubin, Total 0.3 mg/dL (0.2-1.0); Blood Alcohol < 3.0 mg/dL (<10); Blood Urea Nitrogen 10 mg/dL (9-23); Calcium 10.1 mg/dL (8.5-10.1); Carbon Dioxide 23 mmol/L (20-30); Chloride 104 mmol/L (98-107); Glucose 143 mg/dL (74-106); Potassium 4.4 mmol/L (3.5-5.1); Salicylate < 3.0 mg/dL (2.8-20.0); Sodium 136 mmol/L (136-145); Total Protein 7.6 g/dL (5.7-8.2)
[2023-06-11 12:51] LABS: Magnesium 1.9 mg/dL (1.6-2.6)
[2023-06-11 13:56] VITALS: BP 139/82; PULSE 93; RESP 18; O2SAT 96
== END 2023-06-11 16:00 | disposition home or self-care (01) ==
LOC: EDBD 11:06 → ER 11:06
DX: F28 Other psychotic disorder not due to a substance or known physiological condition (principal); F20.9 Schizophrenia, unspecified; G89.4 Chronic pain syndrome; M54.50 Low back pain, unspecified; F41.9 Anxiety disorder, unspecified; I10 Essential (primary) hypertension; E11.9 Type 2 diabetes mellitus without complications; E78.5 Hyperlipidemia, unspecified; E03.9 Hypothyroidism, unspecified; Z79.1 Long term (current) use of non-steroidal anti-inflammatories (NSAID); Z79.2 Long term (current) use of antibiotics; Z79.899 Other long term (current) drug therapy; Z88.8 Allergy status to other drugs, medicaments and biological substances; Z91.048 Other nonmedicinal substance allergy status
CPT/HCPCS: 36415; 80053; 80320; 80329; 83735; 85025

== ENCOUNTER 2023-07-06 11:52 | Emergency (ER) | payer MEDICAID ==
[~2023-07-06] VITALS: Ht 167.6 cm; Wt 77.2 kg
[2023-07-06 14:18] LABS: Salicylate < 3.0 mg/dL (2.8-20.0)
[2023-07-06] MEDS: LORazepam 0.5 MG TAB PO ONE (14:46)
[2023-07-06] MEDS: HYDROcodone-ACET 5/325MG TAB PO ONE (14:54)
[2023-07-06 15:38] VITALS: BP 134/87; PULSE 87; RESP 17; TEMP 98.7; O2SAT 97
== END 2023-07-06 19:30 | disposition left against medical advice (07) ==
LOC: EDBD 11:52 → ER 11:52
DX: R51.9 Headache, unspecified (principal); R44.3 Hallucinations, unspecified; I10 Essential (primary) hypertension; E11.9 Type 2 diabetes mellitus without complications; E78.5 Hyperlipidemia, unspecified; E03.9 Hypothyroidism, unspecified; F17.210 Nicotine dependence, cigarettes, uncomplicated; Z90.49 Acquired absence of other specified parts of digestive tract; Z90.710 Acquired absence of both cervix and uterus; Z79.1 Long term (current) use of non-steroidal anti-inflammatories (NSAID); Z79.2 Long term (current) use of antibiotics; Z79.899 Other long term (current) drug therapy; Z88.8 Allergy status to other drugs, medicaments and biological substances; Z91.048 Other nonmedicinal substance allergy status
CPT/HCPCS: 36415; 70450; 80320; 80329

== ENCOUNTER 2023-11-12 00:48 | Emergency (ER) | payer MEDICAID ==
[~2023-11-12] VITALS: Ht 170.2 cm; Wt 100.0 kg
[2023-11-12 00:56] VITALS: BP 170/64; RESP 16; O2SAT 95
[2023-11-12 01:17] LABS: Basophils # (auto) 0.1 10 ^3/uL (0-0.2); Basophils % (auto) 0.4 % (0.0-2.0); Eosinophils # (auto) 0.2 10 ^3/uL (0-0.8); Eosinophils % (auto) 1.6 % (0.0-7.0); Hematocrit 51.5 % (36.0-46.0); Hemoglobin 16.9 g/dL (12.2-16.2); Lymphocytes # (auto) 3.5 10 ^3/uL (0.4-5.4); Lymphocytes % (auto) 21.7 % (10.0-50.0); Mean Corpuscular Hemoglobin 30.4 pg (28.0-32.0); Mean Corpuscular Hgb Conc. 32.9 g/dL (32.0-36.0); Mean Corpuscular Volume 92.5 fL (80.0-100.0); Monocytes # (auto) 1.6 10 ^3/uL (0-1.3); Monocytes % (auto) 10.3 % (0.0-12.0); Neutrophils # (auto) 10.5 10 ^3/uL (1.6-8.6); Red Blood Cells 5.56 10^6/uL (4.0-5.20); Red Cell Distribution Width 13.1 % (11.8-14.3); White Blood Cell 15.9 10^3/uL (4.4-10.8)
[2023-11-12 01:32] LABS: INR 1.03 (0.9-1.15); Partial Thromboplastin Time 27.2 SEC (24.5-34.5); Prothrombin Time 10.9 sec (9.3-11.8)
[2023-11-12 01:36] LABS: Alanine Aminotransferase 24 U/L (7-40); Albumin 4.8 g/dL (3.2-4.8); Alkaline Phosphatase 163 U/L (46-116); Anion Gap 5 (5-15); Aspartate Aminotransferase 17 U/L (13-40); BUN/Creatinine Ratio 9.5 (10.0-20.0); Blood Urea Nitrogen 10 mg/dL (9-23); Calcium 10.3 mg/dL (8.5-10.1); Carbon Dioxide 28 mmol/L (20-30); Chloride 107 mmol/L (98-107); Glucose 131 mg/dL (74-106); Magnesium 1.9 mg/dL (1.6-2.6); Potassium 4.3 mmol/L (3.5-5.1); Sodium 140 mmol/L (136-145)
[2023-11-12 01:37] LABS: Bilirubin, Total 0.4 mg/dL (0.2-1.0); Total Protein 7.6 g/dL (5.7-8.2)
[2023-11-12 02:47] VITALS: PULSE 83
== END 2023-11-12 03:43 | disposition home or self-care (01) ==
LOC: ER 00:48 → EDBD 00:48 → ER 03:30
DX: R07.89 Other chest pain (principal); I10 Essential (primary) hypertension; E78.5 Hyperlipidemia, unspecified; E11.9 Type 2 diabetes mellitus without complications; F17.210 Nicotine dependence, cigarettes, uncomplicated; Z90.710 Acquired absence of both cervix and uterus; Z90.49 Acquired absence of other specified parts of digestive tract; Z88.8 Allergy status to other drugs, medicaments and biological substances
CPT/HCPCS: 36415; 71045; 80053; 83735; 83880; 84484; 85025; 85610; 85730; 93005

== ENCOUNTER 2024-10-08 15:33 | Emergency (ER) | payer MEDICAID ==
[~2024-10-08] VITALS: Ht 160 cm; Wt 96.8 kg
--- NOTE | 2024-10-08 16:22 | DVH ---
EXAM: CT HEAD WITHOUT CONTRAST INDICATION: BUCK TECHNIQUE: CT of the head without intravenous contrast. Radiation Dose Information: CT Dose: CTDI volume is 60.21 mGy. Dose-length product is 1186.47 mGy*cm The dose indicators for CT are the volume Computed Tomography (CT) Dose Index (CTDIvol) and the Dose Length Product (DLP), and are measured in units of mGy and mGy-cm, respectively. These indicators are not patient dose, but values generated from the CT scanner acquisition factors. The report includes radiation exposure data for exposures received during this examination. COMPARISON: CT HEAD WITHOUT CONTRAST on DOS: 07/06/23, CT HEAD WITHOUT CONTRAST on DOS: 02/07/23, CT HEA D WITHOUT CONTRAST on DOS: 01/25/23 FINDINGS: There is no evidence of acute intracranial hemorrhage, extra-axial collection, mass effect, midline s hift, herniation or hydrocephalus. The ventricles, sulci and cisterns are age appropriate. The osborne-white differentiation is intact. Patchy periventricular and subcortical white matter hypoattenuation is nonspecific but may be related to small vessel ischemic disease. The visualized paranasal sinuses and mastoid air cells are clear. The surrounding soft tissues and osseous structures are unremarkable. IMPRESSION: 1. No acute intracranial hemorrhage 2. No CT findings of territorial ischemia. 3. No CT findings of paranasal sinus or mastoid disease
[2024-10-08 16:32] LABS: Basophils # (auto) 0.1 10 ^3/uL (0-0.2); Basophils % (auto) 0.8 % (0.0-2.0); Eosinophils # (auto) 0.4 10 ^3/uL (0-0.8); Eosinophils % (auto) 3.6 % (0.0-7.0); Hematocrit 48.7 % (36.0-46.0); Hemoglobin 16.3 g/dL (12.2-16.2); Lymphocytes % (auto) 37.6 % (10.0-50.0); Mean Corpuscular Hemoglobin 31.6 pg (28.0-32.0); Mean Corpuscular Hgb Conc. 33.5 g/dL (32.0-36.0); Mean Corpuscular Volume 94.6 fL (80.0-100.0); Monocytes # (auto) 0.9 10 ^3/uL (0-1.3); Monocytes % (auto) 8.4 % (0.0-12.0); Neutrophils # (auto) 5.3 10 ^3/uL (1.6-8.6); Neutrophils % (auto) 49.6 % (37.0-80.0); Nucleated Red Blood Cells % 0.1 %; Platelet Count (auto) 302 10^3/uL (140-450); Red Blood Cells 5.15 10^6/uL (4.0-5.20); Red Cell Distribution Width 13.4 % (11.8-14.3); White Blood Cell 10.7 10^3/uL (4.4-10.8)
--- NOTE | 2024-10-08 16:37 | ED.PDOC ---
History of Present Illness HPI Comments 54-year-old female presents with a chief complaint of "I have had a headache since I was a kid". Denies chest pain, sob, nausea, vomiting or diarrhea. No slurred speech noted. Patient denies any other symptoms other than the headache. Chief Complaint: Headache Time Seen by MD: 16:36 Primary Care Provider: none Reviewed Notes: Medications, Allergies Allergies: Coded Allergies: Soap (Verified Allergy, Severe, 03/14/13) Lanolin (Verified Allergy, Intermediate, 11/01/12) Home Meds Active Scripts Ibuprofen Micronized (MOTRIN TABLET) 600 Mg Tb, 600 MG PO TID PRN for 5 Days, #15 TAB *Black box warning-NSAIDS can increase risk of [place] & hypertension, GI irritation, ulceration, bleed, perferation. Do not use post cardiac surgery. Use short duration/lowest effective dose. Prov:EVITA TORRES MD 06/01/23 Tramadol Hcl (Tramadol Hcl) 50 Mg Tab, 50 MG PO Q8HP PRN, #15 TAB Prov:CHANTEL ADAM PAC 02/16/23 Ibuprofen Micronized (Ibuprofen) 800 Mg Tab, 800 MG PO Q8HP PRN, #30 TAB Prov:CHANTEL ADAM PAC 02/16/23 Quetiapine Fumerate (Seroquel) 300 Mg Tab, 1 TAB PO QPM, #20 TAB Prov:BIJAL MARTIN 01/26/23 Aluminum Hydroxide-Mag Carb (Gaviscon Extra Strength) 1 Chw Chw, 1 CHW PO TID for 15 Days, #60 TAB.CHEW Prov:NATALY YEPEZ MD 12/24/22 Ciprofloxacin Hcl (Ciprofloxacin Hcl) 500 Mg Tab, 500 MG PO Q12HR, #10 MG Prov:PRANAY BERNAL MD 03/14/13 Reported Medications Hydrocodone-Acetaminophen ([place] 10/325MG) 1 Tab Tb, 1 TAB PO TID 03/14/13 [Voltaren1 %] (Voltaren) 1 % GEL No Conflict Check, % 11/01/12 [Ventolin Hfa] (Ventolin Hfa) AER No Conflict Check 11/01/12 [Hydrocodone/Ace1 Ta9] (Hydrocodone/Acetaminophen) 1 TAB TAB No Conflict Check, TAB 11/01/12 Information Source: Patient Mode of Arrival: Ambulatory Severity: Moderate Timing: Months Duration: Since onset Prehospital treatment: None Past Medical History PAST MEDICAL HISTORY: Anxiety, Depression, DM, High Lipids, HTN, Liver, Schizophrenia, Thyroid, UTI'S Surgical History: Appendectomy, Cholecystectomy, Hysterectomy 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 PROJECTION WELDING 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 OPERATOR History Family History Family History: Family hx of DM, Family hx of heart jorge, Family hx of HTN Social History Smoker: Cigarettes Alcohol: Denies ETOH Use Drugs: Denies Drug Use Lives In: Home Constitutional: denies: chills, diaphoresis, fatigue, fever, malaise, sweats, weakness, others EENTM: denies: blurred vision, double vision, ear bleeding, ear discharge, ear drainage, ear pain, ear ringing, eye pain, eye redness, hearing loss, mouth pain, mouth swelling, nasal discharge, nose bleeding, nose congestion, nose pain, photophobia, tearing, throat pain, throat swelling, voice changes, others Respiratory: denies: cough, hemoptysis, orthopnea, SOB at rest, shortness of breath, SOB with excertion, stridor, wheezing, others Cardiovascular: denies: chest pain, dizzy spells, diaphoresis, Dyspnea on exertion, edema, irregular heart beat, left arm pain, lightheadedness, palpitations, PND, syncope, others Gastrointestinal: denies: abdomen distended, abdominal pain, blood streaked bowels, constipated, diarrhea, dysphagia, difficulty swallowing, hematemesis, melena, nausea, poor appetite, poor fluid intake, rectal bleeding, rectal pain, vomiting, others Genitourinary: denies: abnormal vagina bleeding, burning, dyspareunia, dysuria, flank pain, frequency, hematuria, incontinence, pain, , vagina discharge, urgency, others Neurological: reports: headache; denies: dizziness, fainting, left sided numbness, left sided weakness, numbness, paresthesia, pre-existing deficit, right sided numbness, right sided weakness, seizure, speech problems, tingling, tremors, weakness, others Musculoskeletal: denies: back pain, gout, joint pain, joint swelling, muscle pain, muscle stiffness, neck pain, others Integumetry: denies: bruises, change in color, change in hair/nails, dryness, laceration, lesions, lumps, rash, wounds, others Allergic/Immunocompromised: denies: Difficulty Healing, Frequent Infections, Hives, Itching, others Hematologic/Lymphatic: denies: anemia, blood clots, easy bleeding, easy bruising, swollen glands, others Endocrine: denies: excessive hunger, excessive sweating, excessive thirst, excessive urination, flushing, intolerance to cold, intolerance to heat, unexplained weight gain, unexplained weight loss, others Psychiatric: denies: anxiety, bipolar disorder, depression, hopeless, panic disorder, schizophrenia, sleepless, suicidal, others All Other Systems: Reviewed and Negative Physical Exam General Appearance: No Apparent Distress, Normal HEENT: Normal ENT Inspection, Pharynx Normal, TMs Normal Neck: Full Range of Motion, Non-Tender, Normal, Normal Inspection Respiratory: Chest Non-Tender, Lungs Clear, No Accessory Muscle Use, No Respiratory Distress, Normal Breath Sounds Cardiovascular: No Edema, No JVD, No Murmur, No Gallop, Normal Peripheral Pulses, Regular Rate/Rhythm Breast Exam: Deferred Gastrointestinal: No Organomegaly, Non Tender, No Pulsatile Mass, Normal Bowel Sounds, Soft Genitalia: Deferred Pelvic: Deferred Rectal: Deferred Extremities: No calf tenderness, Normal capillary refill, Normal inspection, Normal range of motion, Non-tender, No pedal edema Musculoskeletal : Apperance: Normal Neurologic: Alert, return clerk II-XII nml as Tested, No Motor Deficits, Normal Affect, Normal Mood, No Sensory Deficits Cerebellar Function: Normal Reflexes: Normal Skin: Dry, Normal Color, Warm Lymphatic: No Adenopathy Was a procedure done? Was a procedure done?: No Differential Dx Considerations may include: TIA, CVA, migraine headache, X-Ray, Labs, Meds, VS Vital Signs Date Time Temp Pulse Resp B/P (MAP) Pulse Ox O2 Delivery O2 Flow Rate FiO2 10/08/24 15:58 98.3 78 20 123/73 (90) 99 98.3 Lab Test 10/08/24 16:19 Range/Units White Blood Count 10.7 4.4-10.8 10^3/uL Red Blood Count 5.15 4.0-5.20 10^6/uL Hemoglobin 16.3 H 12.2-16.2 g/dL Hematocrit 48.7 H 36.0-46.0 % Mean Corpuscular Volume 94.6 80.0-100.0 fL Mean Corpuscular Hemoglobin 31.6 28.0-32.0 pg Mean Corpuscular Hemoglobin Concent 33.5 32.0-36.0 g/dL Red Cell Distribution Width 13.4 11.8-14.3 % Platelet Count 302 140-450 10^3/uL Mean Platelet Volume 8.8 6.9-10.8 fL Neutrophils (%) (Auto) 49.6 37.0-80.0 % Lymphocytes (%) (Auto) 37.6 10.0-50.0 % Monocytes (%) (Auto) 8.4 0.0-12.0 % Eosinophils (%) (Auto) 3.6 0.0-7.0 % Basophils (%) (Auto) 0.8 0.0-2.0 % Neutrophils # (Auto) 5.3 1.6-8.6 10 ^3/uL Lymphocytes # (Auto) 4.0 0.4-5.4 10 ^3/uL Monocytes # (Auto) 0.9 0-1.3 10 ^3/uL Eosinophils # (Auto) 0.4 0-0.8 10 ^3/uL Basophils # (Auto) 0.1 0-0.2 10 ^3/uL Nucleated Red Blood Cells 0.1 % D-Dimer, Quantitative 0.24 0.0-0.49 mg/L FEU Sodium Level 141 136-145 mmol/L Potassium Level 4.1 3.5-5.1 mmol/L Chloride Level 105 98-107 mmol/L Carbon Dioxide Level 28 20-31 mmol/L Anion Gap 8 5-15 Blood Urea Nitrogen 15 9-23 mg/dL Creatinine 1.11 H 0.550-1.02 mg/dL Glomerular Filtration Rate Calc 59 >90 mL/min BUN/Creatinine Ratio 13.5 10.0-20.0 Serum Glucose 180 H 74-106 mg/dL Calcium Level 9.3 8.7-10.4 mg/dL Total Bilirubin 0.3 0.2-1.0 mg/dL Aspartate Amino Transferase (AST) 37 13-40 U/L Alanine Aminotransferase (ALT) 55 H 7-40 U/L Alkaline Phosphatase 124 H 46-116 U/L Total Protein 6.7 5.7-8.2 g/dL Albumin 4.4 3.2-4.8 g/dL X-Ray, Labs, Meds, VS Comment Imaging: X-rays and CT scans were reviewed and interpreted by this provider, imaging shows no fractures and no pathological disease. Pending radiology review. Laboratory: Labs reviewed and interpreted by this provider. No significant abnormalities noted. Patient has prior medical visits reviewed. Med reconciliation performed Vital signs reviewed Time of 1ST Reevaluation: 17:06 Reevaluation 1ST: Unchanged Patient Education/Counseling: Diagnosis, Treatment, Need For Follow Up (Follow up with PCP in the next 2-4 days. Return to the emergency department if symptoms worsen.) Family Education/Counseling: Diagnosis, Treatment Departure 1 Departure Time of Disposition: 20:50 Impression: Primary Impression: Cephalgia Qualified Codes: G44.209 - Tension-type headache, unspecified, not intractable Additional Impression: Chronic headache Qualified Codes: G44.229 - Chronic tension-type headache, not intractable Disposition: 01 HOME / SELF CARE / HOMELESS Condition: Fair Discharged With: Self Critical Care Note Critical Care Time?: No Stability Stability form required: No Heart Score Heart Score: Heart Score Response (Comments) Value History N/A 0 EKG N/A 0 Age N/A 0 Risk Factors N/A 0 Troponin N/A 0 Total 0 I personally scribed for MATTHEW SAHA ([email or web address]) on 10/08/24 at 16:37. Electronically submitted by Nick Jalloh ([email or web address]). MATTHEW SAHA October 08, 2024 16:37
[2024-10-08 16:46] LABS: Albumin 4.4 g/dL (3.2-4.8); Anion Gap 8 (5-15); Aspartate Aminotransferase 37 U/L (13-40); BUN/Creatinine Ratio 13.5 (10.0-20.0); Blood Urea Nitrogen 15 mg/dL (9-23); Calcium 9.3 mg/dL (8.7-10.4); Carbon Dioxide 28 mmol/L (20-31); Chloride 105 mmol/L (98-107); Potassium 4.1 mmol/L (3.5-5.1); Sodium 141 mmol/L (136-145); Total Protein 6.7 g/dL (5.7-8.2)
[2024-10-08 16:47] LABS: Alanine Aminotransferase 55 U/L (7-40); Alkaline Phosphatase 124 U/L (46-116); Bilirubin, Total 0.3 mg/dL (0.2-1.0); Glucose 180 mg/dL (74-106)
[2024-10-09 00:36] VITALS: BP 152/71; PULSE 83; TEMP 97.9
[2024-10-09] MEDS: KETOROLAC TROMETH 30 MG/ML 1ML VIAL IM ONE (00:39)
[2024-10-09 00:47] VITALS: RESP 20; O2SAT 97
== END 2024-10-09 00:51 | disposition home or self-care (01) ==
LOC: ER 15:33
DX: R51.9 Headache, unspecified (principal); F17.210 Nicotine dependence, cigarettes, uncomplicated; F32.A Depression, unspecified; I10 Essential (primary) hypertension; F20.9 Schizophrenia, unspecified; E11.9 Type 2 diabetes mellitus without complications; E78.5 Hyperlipidemia, unspecified; F41.9 Anxiety disorder, unspecified; Z90.710 Acquired absence of both cervix and uterus; Z90.49 Acquired absence of other specified parts of digestive tract; Z79.899 Other long term (current) drug therapy; Z87.440 Personal history of urinary (tract) infections; Z91.048 Other nonmedicinal substance allergy status
CPT/HCPCS: 36415; 70450; 80053; 85025; 85379; 96372; 99285; J1885

== ENCOUNTER 2025-01-21 11:26 | Emergency (ER) | payer MEDICAID, OTHER ==
[~2025-01-21] VITALS: Ht 167.6 cm; Wt 94.0 kg
[2025-01-21 11:31] VITALS: TEMP 97.9
--- NOTE | 2025-01-21 11:43 | ECG ---
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
--- NOTE | 2025-01-21 12:03 | ED.PDOC ---
History of Present Illness HPI Comments This is a 54-year-old female who comes in with chief complaint of palpitations. The patient states that she has had palpitations for many years. She states that she did not feel good last night as well as this morning so she came to the emergency department's for evaluation. She also states that she is having some right-sided chest pain. She states that the pain is a 5/10. Chief Complaint: Palpitations Time Seen by MD: 11:34 Reviewed Notes: Nurses Notes, Medications, Allergies (No allergies to medications) Allergies: Coded Allergies: NO KNOWN ALLERGIES (Unverified , 01/21/25) Information Source: Patient Mode of Arrival: Ambulatory Severity: Moderate Timing: Days Duration: Since onset Prehospital treatment: None Location: Right-sided chest pain and palpitations Past Medical History PAST MEDICAL HISTORY: DM, High Lipids, HTN Surgical History: Appendectomy, Cholecystectomy, Hysterectomy Surgical History (Other): splenectomy, REFERRAL SPECIALIST History: No Pertinent REFERRAL SPECIALIST History Family History Family History: Family hx of Cancer Social History Smoker: Cigarettes Alcohol: Denies ETOH Use Drugs: Denies Drug Use Lives In: Home Constitutional: denies: chills, diaphoresis, fatigue, fever, malaise, sweats, weakness, others EENTM: denies: blurred vision, double vision, ear bleeding, ear discharge, ear drainage, ear pain, ear ringing, eye pain, eye redness, hearing loss, mouth pain, mouth swelling, nasal discharge, nose bleeding, nose congestion, nose pain, photophobia, tearing, throat pain, throat swelling, voice changes, others Respiratory: denies: cough, hemoptysis, orthopnea, SOB at rest, shortness of breath, SOB with excertion, stridor, wheezing, others Cardiovascular: reports: chest pain, palpitations; denies: dizzy spells, diaphoresis, Dyspnea on exertion, edema, irregular heart beat, left arm pain, lightheadedness, PND, syncope, others Gastrointestinal: denies: abdomen distended, abdominal pain, blood streaked bowels, constipated, diarrhea, dysphagia, difficulty swallowing, hematemesis, melena, nausea, poor appetite, poor fluid intake, rectal bleeding, rectal pain, vomiting, others Genitourinary: denies: abnormal vagina bleeding, burning, dyspareunia, dysuria, flank pain, frequency, hematuria, incontinence, pain, , vagina discharge, urgency, others Neurological: denies: dizziness, fainting, headache, left sided numbness, left sided weakness, numbness, paresthesia, pre-existing deficit, right sided nu mbness, right sided weakness, seizure, speech problems, tingling, tremors, weakness, others Musculoskeletal: denies: back pain, gout, joint pain, joint swelling, muscle pain, muscle stiffness, neck pain, others Integumetry: denies: bruises, change in color, change in hair/nails, dryness, laceration, lesions, lumps, rash, wounds, others Allergic/Immunocompromised: denies: Difficulty Healing, Frequent Infections, Hives, Itching, others Hematologic/Lymphatic: denies: anemia, blood clots, easy bleeding, easy bruising, swollen glands, others Endocrine: denies: excessive hunger, excessive sweating, excessive thirst, excessive urination, flushing, intolerance to cold, intolerance to heat, unexplained weight gain, unexplained weight loss, others Psychiatric: denies: anxiety, bipolar disorder, depression, hopeless, panic disorder, schizophrenia, sleepless, suicidal, others Physical Exam General Appearance: Moderate Distress HEENT: Normal ENT Inspection, Pharynx Normal, TMs Normal Neck: Full Range of Motion, Non-Tender, Normal, Normal Inspection Respiratory: Chest Non-Tender, Lungs Clear, No Accessory Muscle Use, No Respiratory Distress, Normal Breath Sounds Cardiovascular: No Edema, No JVD, No Murmur, No Gallop, Normal Peripheral Pulses, Regular Rate/Rhythm Breast Exam: Deferred Gastrointestinal: No Organomegaly, Non Tender, No Pulsatile Mass, Normal Bowel Sounds, Soft Genitalia: Deferred Pelvic: Deferred Rectal: Deferred Extremities: No calf tenderness, Normal capillary refill, Normal inspection, Normal range of motion, Non-tender, No pedal edema Musculoskeletal : Apperance: Normal Neurologic: Alert, back hand II-XII nml as Tested, No Motor Deficits, Normal Affect, Normal Mood, No Sensory Deficits Cerebellar Function: Normal Reflexes: Normal Skin: Dry, Normal Color, Warm Lymphatic: No Adenopathy Was a procedure done? Was a procedure done?: No EKG EKG : Pulse Rate (adult): 68 [place]: Normal Cardiac Rhythm: NSR Block: None ST: Nonsp Differential Dx Considerations may include: ACS, [place], atrial fibrillation with rapid response, electrolyte imbalance X-Ray, Labs, Meds, VS Vital Signs Date Time Temp Pulse Resp B/P (MAP) Pulse Ox O2 Delivery O2 Flow Rate FiO2 01/21/25 12:16 64 01/21/25 12:05 68 01/21/25 11:37 68 01/21/25 11:31 97.9 72 16 148/83 96 97.9 Lab Test 01/21/25 12:04 Range/Units White Blood Count 13.1 H 4.4-10.8 10^3/uL Red Blood Count 5.14 4.0-5.20 10^6/uL Hemoglobin 16.5 H 12.2-16.2 g/dL Hematocrit 49.1 H 36.0-46.0 % Mean Corpuscular Volume 95.6 80.0-100.0 fL Mean Corpuscular Hemoglobin 32.1 H 28.0-32.0 pg Mean Corpuscular Hemoglobin Concent 33.5 32.0-36.0 g/dL Red Cell Distribution Width 14.5 H 11.8-14.3 % Platelet Count 263 140-450 10^3/uL Mean Platelet Volume 9.2 6.9-10.8 fL Neutrophils (%) (Auto) 50.5 37.0-80.0 % Lymphocytes (%) (Auto) 36.1 10.0-50.0 % Monocytes (%) (Auto) 9.7 0.0-12.0 % Eosinophils (%) (Auto) 2.0 0.0-7.0 % Basophils (%) (Auto) 1.7 0.0-2.0 % Neutrophils # (Auto) 6.6 1.6-8.6 10 ^3/uL Lymphocytes # (Auto) 4.7 0.4-5.4 10 ^3/uL Monocytes # (Auto) 1.3 0-1.3 10 ^3/uL Eosinophils # (Auto) 0.3 0-0.8 10 ^3/uL Basophils # (Auto) 0.2 0-0.2 10 ^3/uL Nucleated Red Blood Cells 0.1 % Sodium Level 143 136-145 mmol/L Potassium Level 4.5 3.5-5.1 mmol/L Chloride Level 107 98-107 mmol/L Carbon Dioxide Level 30 20-31 mmol/L Anion Gap 6 5-15 Blood Urea Nitrogen 18 9-23 mg/dL Creatinine 1.14 H 0.550-1.02 mg/dL Glomerular Filtration Rate Calc 58 >90 mL/min BUN/Creatinine Ratio 15.8 10.0-20.0 Serum Glucose 122 H 74-106 mg/dL Calcium Level 9.9 8.7-10.4 mg/dL Troponin I High Sensitivity 3 L </=34 ng/L IV Hep-Lock was established The patient's CBC shows an elevated white blood cell count of 13.1 The rest of the CBC is within normal limits The chemistry panel shows a creatinine of 1.14 At this time the troponin level is negative The chest x-ray shows: No sign of any abnormalities The patient is being admitted at this time. The patient understands and agrees with the management. The repeat EKG shows some signs of ischemia so we are going to get a Cardiology consult Images Reviewed?: Images reviewed and evaluated by me Time of 1ST Reevaluation: 12:04 Reevaluation 1ST: Unchanged Patient Education/Counseling: Diagnosis, Treatment, Prognosis Family Education/Counseling: No Family Present SEPSIS Sepsis Screen Date sepsis recognized/suspect: Jan 21, 2025 Time Sepsis recognized/suspect: 113 Recent Procedure: No On Antibiotic Therapy: No Respiratory Rate >20: No Heart Rate >90: No Temp<36 C (96.8 F) or >38.3 C: No SBP <90 or MAP <65 mmHG: No New Acute Mental Status Change: No Is the patient on CPAP, BIPAP,: No Physician Orders Urinalysis (01/21/25 11:50) Chest Two Views Routine (01/21/25 11:50) Drug Screen (01/21/25 11:50) Troponin-I Hs (01/21/25 12:50) Troponin-I Hs (01/21/25 14:50) Vital Signs Date Time Temp Pulse Resp B/P (MAP) Pulse Ox O2 Delivery O2 Flow Rate FiO2 01/21/25 12:16 64 01/21/25 12:05 68 01/21/25 11:37 68 01/21/25 11:31 97.9 72 16 148/83 96 97.9 Laboratory Tests Test 01/21/25 12:04 White Blood Count 13.1 10^3/uL (4.4-10.8) H Departure 1 Departure Time of Disposition: 12:44 Impression: Primary Impression: Acute coronary syndrome Disposition: 09 ADMITTED INPATIENT Admit to: Tele Condition: Fair Critical Care Note Critical Care Time?: Yes (35 min-critical care time only) Stability Stability form required: Yes Unstable for transfer: Telemetry monitoring (Telemetry monitoring required), ED Physician Assesment (Clinical assesment) Heart Score Heart Score: Heart Score Response (Comments) Value History N/A 0 EKG N/A 0 Age N/A 0 Risk Factors N/A 0 Troponin N/A 0 Total 0 PRANAY BERNAL MD Jan 21, 2025 12:03
[2025-01-21 12:22] LABS: Hematocrit 49.1 % (36.0-46.0); Hemoglobin 16.5 g/dL (12.2-16.2); Mean Corpuscular Hemoglobin 32.1 pg (28.0-32.0); Mean Corpuscular Volume 95.6 fL (80.0-100.0); Nucleated Red Blood Cells % 0.1 %
--- NOTE | 2025-01-21 12:23 | DVH ---
XY CHEST TWO VIEWS ROUTINE INDICATION: cp TECHNIQUE: Two views of the chest COMPARISON: None FINDINGS/IMPRESSION: LUNGS: No pleural effusion, consolidation, or pneumothorax MEDIASTINUM: Unremarkable BONES: No acute osseous abnormality OTHER: None
[2025-01-21 12:30] LABS: Potassium 4.5 mmol/L (3.5-5.1); Sodium 143 mmol/L (136-145)
[2025-01-21 12:31] LABS: Anion Gap 6 (5-15); Calcium 9.9 mg/dL (8.7-10.4); Carbon Dioxide 30 mmol/L (20-31)
[2025-01-21 12:32] LABS: Chloride 107 mmol/L (98-107)
[2025-01-21 12:36] LABS: BUN/Creatinine Ratio 15.8 (10.0-20.0); Blood Urea Nitrogen 18 mg/dL (9-23)
[2025-01-21 12:37] LABS: Glucose 122 mg/dL (74-106)
[2025-01-21 13:38] LABS: Urine Protein, UAD Negative (Negative)
[2025-01-21 13:41] LABS: Cannabinoid Screen, Urine Pos (NEGATIVE)
[2025-01-21 13:45] LABS: Amphetamine Screen, Urine Neg (NEGATIVE); Barbiturate Scree,Urine Neg (NEGATIVE); Benzodiazephine Screen, Urine Neg (NEGATIVE); Cocaine Screen, Urine Neg (NEGATIVE); Opiate Scree,Urine Pos (NEGATIVE); Phencyclidine Screen, Urine Neg (NEGATIVE)
[2025-01-21 14:27] VITALS: BP 163/82; PULSE 70; RESP 18; O2SAT 96
== END 2025-01-21 15:07 | disposition left against medical advice (07) ==
LOC: ER 11:26 → MERGE 11:26 → ER 15:07
DX: I24.9 Acute ischemic heart disease, unspecified (principal); R00.2 Palpitations; E11.9 Type 2 diabetes mellitus without complications; Z90.710 Acquired absence of both cervix and uterus; Z90.49 Acquired absence of other specified parts of digestive tract; Z79.899 Other long term (current) drug therapy
CPT/HCPCS: 36415; 71046; 80048; 80307; 81001; 84484; 85025; 93005; 99291

== ENCOUNTER 2025-02-07 09:01 | Emergency (ER) | payer MEDICAID ==
[~2025-02-07] VITALS: Ht 162.6 cm; Wt 100.0 kg
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
[2025-02-07 09:39] LABS: Hematocrit 55.2 % (36.0-46.0); Hemoglobin 18.4 g/dL (12.2-16.2); Mean Corpuscular Hemoglobin 31.4 pg (28.0-32.0); Mean Corpuscular Volume 94.0 fL (80.0-100.0); Nucleated Red Blood Cells % 0.1 %
[2025-02-07 09:52] LABS: Chloride 100 mmol/L (98-107); Potassium 4.6 mmol/L (3.5-5.1); Sodium 141 mmol/L (136-145)
[2025-02-07 09:53] LABS: Anion Gap 7 (5-15)
[2025-02-07 09:54] LABS: Calcium 11.3 mg/dL (8.7-10.4); Carbon Dioxide 34 mmol/L (20-31)
[2025-02-07 09:58] LABS: BUN/Creatinine Ratio 10.5 (10.0-20.0); Blood Urea Nitrogen 11 mg/dL (9-23)
[2025-02-07 10:08] LABS: Glucose 114 mg/dL (74-106)
[2025-02-07 10:56] LABS: Urine Protein, UAD Negative (Negative)
[2025-02-07] MEDS: PANTOPRAZOLE 40 MG/10 ML VIAL INJ IV ONE (11:34)
[2025-02-07 11:44] VITALS: PULSE 84; RESP 17; O2SAT 98
[2025-02-07] MEDS ORDERED: PANT40TA2 PO (12:59)
[2025-02-07] MEDS: SODIUM CHLORIDE 0.9% 1,000 ML IV ONE (13:38)
[2025-02-07 13:45] VITALS: TEMP 98.3
[2025-02-07 16:00] VITALS: BP 152/82; PULSE 88; RESP 20; O2SAT 92
== END 2025-02-07 16:16 | disposition home or self-care (01) ==
LOC: EDBD 09:01 → ER 09:01
DX: K29.70 Gastritis, unspecified, without bleeding (principal); F17.210 Nicotine dependence, cigarettes, uncomplicated; F32.A Depression, unspecified; F20.9 Schizophrenia, unspecified; E11.9 Type 2 diabetes mellitus without complications; I10 Essential (primary) hypertension; E78.5 Hyperlipidemia, unspecified; Z79.899 Other long term (current) drug therapy; Z90.710 Acquired absence of both cervix and uterus; Z87.440 Personal history of urinary (tract) infections; Z79.891 Long term (current) use of opiate analgesic; Z90.49 Acquired absence of other specified parts of digestive tract
CPT/HCPCS: 36415; 80048; 81001; 84484; 85025; 96361; 96374; 99283; J2470; J7030

== ENCOUNTER 2025-03-20 15:14 | Emergency (ER) | payer MEDICAID ==
[~2025-03-20] VITALS: Ht 167.6 cm; Wt 83.4 kg
[~2025-03-20 15:14] MED LIST changes: +PANT40TA2 PO
--- NOTE | 2025-03-20 15:54 | ED.PDOC ---
History of Present Illness(SKN HPI Comments This is a 54 year old female presenting to the ED with chief complaint of animal bite. Patient reports that she had been bitten to both of her feet by a rat in her garage where according to the patient she is currently living. Patient relays that her home also has scabies in it, believing she is exposed as her scalp is itchy. Patient denies any fever, chills, redness, swelling, discharge, SOB, or chest pain. Vital signs were stable. Chief Complaint: Animal Bite Time Seen by MD: 15:51 Primary Care Provider: none History of Present Illness: Nurses Notes, Medications, Allergies Allergies: Coded Allergies: Soap (Verified Allergy, Severe, 03/14/13) Lanolin (Verified Allergy, Intermediate, 11/01/12) Home Meds Active Scripts Pantoprazole Sodium Sesquihydr (Protonix) 40 Mg Tab, 40 MG PO DAILY for 10 Days, #10 TAB Prov:EVITA TORRES MD 02/07/25 Ibuprofen Micronized (MOTRIN TABLET) 600 Mg Tb, 600 MG PO TID PRN for 5 Days, #15 TAB *Black box warning-NSAIDS can increase risk of CT & hypertension, GI irritation, ulceration, bleed, perferation. Do not use post cardiac surgery. Use short duration/lowest effective dose. Prov:EVITA TORRES MD 06/01/23 Tramadol Hcl (Tramadol Hcl) 50 Mg Tab, 50 MG PO Q8HP PRN, #15 TAB Prov:CHANTEL ADAM PAC 02/16/23 Ibuprofen Micronized (Ibuprofen) 800 Mg Tab, 800 MG PO Q8HP PRN, #30 TAB Prov:CHANTEL ADAM PAC 02/16/23 Quetiapine Fumerate (Seroquel) 300 Mg Tab, 1 TAB PO QPM, #20 TAB Prov:BIJAL MARTIN 01/26/23 Aluminum Hydroxide-Mag Carb (Gaviscon Extra Strength) 1 Chw Chw, 1 CHW PO TID for 15 Days, #60 TAB.CHEW Prov:NATALY YEPEZ MD 12/24/22 Ciprofloxacin Hcl (Ciprofloxacin Hcl) 500 Mg Tab, 500 MG PO Q12HR, #10 MG Prov:PRANAY BERNAL MD 03/14/13 Reported Medications Hydrocodone-Acetaminophen ([place] 10/325MG) 1 Tab Tb, 1 TAB PO TID 03/14/13 [Voltaren1 %] (Voltaren) 1 % GEL No Conflict Check, % 11/01/12 [Ventolin Hfa] (Ventolin Hfa) AER No Conflict Check 11/01/12 [Hydrocodone/Ace1 Ta9] (Hydrocodone/Acetaminophen) 1 TAB TAB No Conflict Check, TAB 11/01/12 Information Source: Patient Mode of Arrival: Ambulatory Severity: Mild Timing: Hours Duration: Since onset Prehospital treatment: None Location: Foot, Head Mechanism: Scabies (and rat) Occurence: Indoors Object: None Condition of Object: None Retained Foreign Body: No Wound Type: Puncture Immunization Status of Animal: Unknown Tetanus: >5 Years, Unknown Associated Signs and Symptoms: Redness Past Medical History PAST MEDICAL HISTORY: Anxiety, Depression, DM, High Lipids, HTN, Liver, Schizophrenia, Thyroid, UTI'S Surgical History: Appendectomy, Cholecystectomy, Hysterectomy 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 History Family History Family History: Reviewed,noncontributory to illness, Family hx of DM, Family hx of heart jorge, Family hx of HTN Social History Smoker: Cigarettes Alcohol: Denies ETOH Use Drugs: Denies Drug Use Lives In: Home Constitutional: denies: chills, diaphoresis, fatigue, fever, malaise, sweats, weakness, others EENTM: denies: blurred vision, double vision, ear bleeding, ear discharge, ear drainage, ear pain, ear ringing, eye pain, eye redness, hearing loss, mouth pain, mouth swelling, nasal discharge, nose bleeding, nose congestion, nose pain, photophobia, tearing, throat pain, throat swelling, voice changes, others Respiratory: denies: cough, hemoptysis, orthopnea, SOB at rest, shortness of breath, SOB with excertion, stridor, wheezing, others Cardiovascular: denies: chest pain, dizzy spells, diaphoresis, Dyspnea on exertion, edema, irregular heart beat, left arm pain, lightheadedness, palpitations, PND, syncope, others Gastrointestinal: denies: abdomen distended, abdominal pain, blood streaked bowels, constipated, diarrhea, dysphagia, difficulty swallowing, hematemesis, melena, nausea, poor appetite, poor fluid intake, rectal bleeding, rectal pain, vomiting, others Genitourinary: denies: abnormal vagina bleeding, burning, dyspareunia, dysuria, flank pain, frequency, hematuria, incontinence, pain, , vagina discharge, urgency, others Neurological: denies: dizziness, fainting, headache, left sided numbness, left sided weakness, numbness, paresthesia, pre-existing deficit, right sided numbness, right sided weakness, seizure, speech problems, tingling, tremors, weakness, others Musculoskeletal: denies: back pain, gout, joint pain, joint swelling, muscle pain, muscle stiffness, neck pain, others Integumetry: reports: wounds (Bilateral foot rat bites), others (Itchy scalp); denies: bruises, change in color, change in hair/nails, dryness, laceration, lesions, lumps, rash Allergic/Immunocompromised: denies: Difficulty Healing, Frequent Infections, Hives, Itching, others Hematologic/Lymphatic: denies: anemia, blood clots, easy bleeding, easy bruising, swollen glands, others Endocrine: denies: excessive hunger, excessive sweating, excessive thirst, excessive urination, flushing, intolerance to cold, intolerance to heat, unexplained weight gain, unexplained weight loss, others Psychiatric: denies: anxiety, bipolar disorder, depression, hopeless, panic disorder, schizophrenia, sleepless, suicidal, others All Other Systems: Reviewed and Negative Physical Exam General Appearance: Mild Distress (Moderate distress due to patient's complaints.), Obese HEENT: Normal ENT Inspection, Pharynx Normal, TMs Normal Neck: Full Range of Motion, Non-Tender, Normal, Normal Inspection Respiratory: Chest Non-Tender, Lungs Clear, No Accessory Muscle Use, No Respiratory Distress, Normal Breath Sounds Cardiovascular: No Edema, No JVD, No Murmur, No Gallop, Normal Peripheral Pulses, Regular Rate/Rhythm Breast Exam: Deferred Gastrointestinal: No Organomegaly, Non Tender, No Pulsatile Mass, Normal Bowel Sounds, Soft Genitalia: Deferred Pelvic: Deferred Rectal: Deferred Extremities: No calf tenderness, Normal inspection Neurologic: Alert Cerebellar Function: NOT DONE Reflexes: NOT DONE Skin: Other (Scalp evaluation was relatively unremarkable. Possible wounds noted to scalp. No definitive scabies delineation. Patient pointed to bilateral foot concerns that were mildly red. No broken skin. No erythema or edema.) Lymphatic: No Adenopathy Was a procedure done? Was a procedure done?: No Differential Diagnosis (INTG) Differential Diagnosis: Other (Animal bite, scabies) X-Ray, Labs, Meds, VS Vital Signs Date Time Temp Pulse Resp B/P (MAP) Pulse Ox O2 Delivery O2 Flow Rate FiO2 03/20/25 15:36 98.9 80 18 143/86 94 98.9 X-Ray, Labs, Meds, VS Comment Spent time discussing the concerns with the patient. Advised that I will send her home with a an antibiotic to address any bacterial concerns related to possible bites. Additionally, patient will be sent home with Elimite to address the scabies issues. Time of 1ST Reevaluation: 16:00 Reevaluation 1ST: Improved Consultation: PCP Patient Education/Counseling: Diagnosis, Treatment Family Education/Counseling: Diagnosis, Treatment, No Family Present SEPSIS Sepsis Screen Date sepsis recognized/suspect: Mar 20, 2025 Time Sepsis recognized/suspect: 1538 Recent Procedure: No On Antibiotic Therapy: No Respiratory Rate >20: No Heart Rate >90: No Temp<36 C (96.8 F) or >38.3 C: No SBP <90 or MAP <65 mmHG: No New Acute Mental Status Change: No Is the patient on CPAP, BIPAP,: No Physician Orders Tetanus [id number] (Boostrix (03/20/25 16:00) Vital Signs Date Time Temp Pulse Resp B/P (MAP) Pulse Ox O2 Delivery O2 Flow Rate FiO2 03/20/25 15:36 98.9 80 18 143/86 94 98.9 Departure 1 Departure Time of Disposition: 16:00 Impression: Primary Impression: Animal bite Additional Impression: Scabies Disposition: HOME / SELF CARE / HOMELESS Condition: Stable Additional Instructions: Advised patient utilize medications as directed until completion. Tylenol and or Motrin as needed for symptomatic discomfort relief. e-Prescriptions Acetaminophen (Acetaminophen) 500 Mg Tab 500 MG PO Q4HP PRN, #30 TAB Prov: CHANTEL ADAM PAC 03/20/25 Permethrin (Elimite) 5 % Cre 1 APPLIC TOP ONCE, #60 GRAMS 1 Refill Repeat application in 10 days. Prov: CHANTEL ADAM PAC 03/20/25 Amoxicillin & Pot Clavulanate (AUGMENTIN TABLET) 875 Mg Tb 875 MG PO BID for 7 Days, #14 TAB Prov: CHANTEL ADAM PAC 03/20/25 Discharged With: Self, Friend Critical Care Note Critical Care Time?: No Stability Stability form required: No Heart Score Heart Score: Heart Score Response (Comments) Value History N/A 0 EKG N/A 0 Age N/A 0 Risk Factors N/A 0 Troponin N/A 0 Total 0 I personally scribed for CHANTEL ADAM PAC ([email or web address]) on 03/20/25 at 15:54. Electronically submitted by Torsten Estevez ([email or web address]). CHANTEL ADAM PAC Mar 20, 2025 15:54
[2025-03-20] MEDS ORDERED: ACET500T58 PO (16:02)
[2025-03-20] MEDS ORDERED: AUG875T PO (16:02)
[2025-03-20] MEDS ORDERED: PER60TP TOP (16:02)
[2025-03-20] MEDS: TETANUS-DIPTH-ACEL PERTUSSIS 0.5ML SYR Tdap IM ONE (16:35)
[2025-03-20 16:45] VITALS: BP 137/81; PULSE 82; RESP 20; TEMP 97.8; O2SAT 96
== END 2025-03-20 16:57 | disposition home or self-care (01) ==
LOC: ER 15:14
DX: S91.352A Open bite, left foot, initial encounter (principal); S91.351A Open bite, right foot, initial encounter; B86 Scabies; E78.5 Hyperlipidemia, unspecified; F41.9 Anxiety disorder, unspecified; F17.210 Nicotine dependence, cigarettes, uncomplicated; E11.9 Type 2 diabetes mellitus without complications; F20.9 Schizophrenia, unspecified; F32.A Depression, unspecified; I10 Essential (primary) hypertension; Z79.899 Other long term (current) drug therapy; Z87.440 Personal history of urinary (tract) infections; Z90.49 Acquired absence of other specified parts of digestive tract; Z79.891 Long term (current) use of opiate analgesic; Z90.710 Acquired absence of both cervix and uterus; W53.11XA Bitten by rat, initial encounter; Y93.89 Activity, other specified; Y92.89 Other specified places as the place of occurrence of the external cause; Y99.8 Other external cause status
CPT/HCPCS: 90471; 90715